=== PATIENT | female | born 1960 | race African-American/Black ===

== ENCOUNTER 2020-06-29 22:13 | Emergency (ER) | payer MEDICAID ==
[~2020-06-29] VITALS: Ht 170.2 cm; Wt 77.6 kg
[2020-06-29 23:08] VITALS: BP 138/79
[2020-06-30] MEDS ORDERED: methylPREDNISolone SOD SUCC 125 MG/2 ML VL IM ONE (02:30)
== END 2020-06-30 03:14 | disposition home or self-care (01) ==
LOC: ER 22:16
DX: S60.562A Insect bite (nonvenomous) of left hand, initial encounter (principal); S60.561A Insect bite (nonvenomous) of right hand, initial encounter; S80.862A Insect bite (nonvenomous), left lower leg, initial encounter; S80.861A Insect bite (nonvenomous), right lower leg, initial encounter; S30.861A Insect bite (nonvenomous) of abdominal wall, initial encounter; S30.860A Insect bite (nonvenomous) of lower back and pelvis, initial encounter; L29.8 Other pruritus; W57.XXXA Bitten or stung by nonvenomous insect and other nonvenomous arthropods, initial encounter; Y93.89 Activity, other specified; Y92.89 Other specified places as the place of occurrence of the external cause; Y99.8 Other external cause status
CPT/HCPCS: 96372; 99283; J2930